=== PATIENT | female | born 1980 | race Caucasian/White ===

== ENCOUNTER 2023-03-19 21:09 | Emergency (ER) | payer OTHER, SELFPAY ==
--- NOTE | ~2023-03-19 | XR_ITS ---
EXAMINATION: XR chest 2V DATE: 03/20/2023 00:48 INDICATION: Chest pain. TECHNIQUE: Frontal and lateral views of the chest were obtained. COMPARISON: Chest single view 12/29/2012, CT abdomen and pelvis 03/19/2023 FINDINGS: There is no pneumonia, pleural effusion, or pneumothorax. The heart size is normal. There i s a left chest wall pacer with leads in the right atrium and right ventricle. Surgical clips in the r ight upper quadrant are likely from cholecystectomy. IMPRESSION: 1. No acute cardiopulmonary disease. Reviewed, dictated and finalized at location E.
--- NOTE | ~2023-03-19 | US_ITS ---
EXAMINATION: US pelvic complete w TV DATE: 03/19/2023 23:35 INDICATION: Pelvic pain Comparison:No prior studies for comparison. TECHNIQUE: Multiple transabdominal and endovaginal sonographic images of the pelvis performed. FINDINGS: The uterus measures 8.6 x 3.6 x 4.2 cm. The endometrial complex measures 13 mm. The right ovary measures 3.3 x 2 x 2.3 cm and the left ovary measures 3.9 x 1.7 x 2.5 cm. There are small follicles in each ovary. Normal doppler signal in both ovaries. There is no free fluid in the pelvis. There are no abnormal masses seen on either side. IMPRESSION: 1. Mild endometrial thickening. Reviewed, dictated and finalized at location A.
--- NOTE | ~2023-03-19 | CT_ITS ---
EXAMINATION: CT abdomen pelvis w con DATE: 03/19/2023 23:04 INDICATION: Abdominal pain TECHNIQUE: Computed tomography (CT) of the abdomen and pelvis was performed without intravenous contr ast. The dose-length product was 1029.29 mGy-cm. Automated exposure control and iterative reconstruction technique were employed. COMPARISON: None. FINDINGS: Calcified granuloma left lower lobe. Heart size normal. No significant pleural or pericardi al effusion. The liver, spleen, pancreas, adrenal glands are unremarkable. There are nonobstructing b ilateral renal stones. There are cholecystectomy clips. Small hiatal hernia. Small fat-containing umb ilical hernia. No abnormal pelvic masses or fluid collections. Nonobstructive bowel pattern. No free air or free fluid. No acute osseous abnormality. IMPRESSION: 1. Nonobstructing bilateral nephrolithiasis. 2: Small hiatal hernia. Fat-containing umbilical hernia. Reviewed, dictated and finalized at location A.
[2023-03-19 21:13] VITALS: BP 164/99; PULSE 94; RESP 18; TEMP 37; O2SAT 100
--- NOTE | 2023-03-19 21:16 | ECG_ITS ---
Measurements Intervals [place] Rate: 84 P: 38 MN: 145 QRS: 20 QRSD: 94 T: 30 QT: 367 QTc: 436 Interpretive Statements SINUS RHYTHM LOW QRS VOLTAGE IN PRECORDIAL LEADS BORDERLINE ECG NO PREVIOUS ECG AVAILABLE FOR COMPARISON Electronically Signed On 03-20-2023 7:49:15 CDT by Saravanan Hicks D.O.
[2023-03-19 21:56] LABS: Basophils Percent Auto 0.4 % (0.2-1.2); Eosinophils Absolute Auto 0.2 K/mm3 (0-0.3); Eosinophils Percent Auto 2.2 % (0-4.4); Hematocrit 41.6 % (37.0-47.0); Hemoglobin 13.3 g/dL (12.0-15.0); Immature Granulocyte Absolute 0.03 K/mm3 (0.00-0.031); Immature Granulocyte Percent A 0.4 % (0-0.5); Lymphocytes Absolute Auto 1.95 K/mm3 (0.9-3.2); Lymphocytes Percent Auto 23.8 % (18.3-44.2); Mean Corpuscular Hemoglobin 29.1 pg (26-34); Mean Platelet Volume 9.1 fl (7.4-10.4); Monocytes Absolute Auto 0.6 K/mm3 (0.1-0.6); Neutrophils Absolute Auto 5.4 K/mm3 (1.3-6.7); Neutrophils Percent Auto 66.2 % (45.5-73.1); Platelet Count Result 341 k/mm3 (150-375); Red Blood Count 4.57 M/mm3 (4.2-5.4); Red Cell Distribution Width 13.1 % (11.5-14.5); White Blood Count 8.2 K/mm3 (4.5-10.0)
[2023-03-19 22:07] LABS: Alanine Aminotransferase 21 U/L (6-35); Albumin Level 4.4 g/dL (3.5-5.1); Alkaline Phosphatase 63 U/L (38-126); Anion Gap 7 mmol/L (8-16); Aspartate Amino Transferase 31 U/L (14-36); Bilirubin,Total 0.5 mg/dL (0.2-1.3); Blood Urea Nitrogen 13 mg/dL (7-17); Calcium 9.7 mg/dL (8.4-10.2); Carbon Dioxide 29 mmol/L (22-30); Chloride 102 mmol/L (98-107); Estimated CRCL calculation 86 ml/min; Estimated Glomerular Filt Rate > 60; Glucose 102 mg/dL (65-110); Lipase 53 U/L (23-300); Potassium 3.8 mmol/L (3.4-5.0); Sodium 138 mmol/L (137-145)
--- NOTE | 2023-03-19 22:09 | ED.ABDPAIN ---
HPI - Abdominal Pain General Chief Complaint: Abdominal Pain Stated Complaint: RLQ pain Time Seen by Provider: 03/19/23 22:02 History of Present Illness HPI narrative: Patient is a 42-year-old female with history of chronic back pain, arrhythmia status post multiple ablations and pacemaker placement here with right-sided abdominal pain. Patient states that abdominal pain began about 4 days ago, was located in the right groin and is sharp in nature. She notes that the pain is now located suprapubically as well as in the right adnexa. She notes that the pain is worse with movement and has worsened her chronic back pain. She notes normal bowel movements and normal urination. She has taken her home Percocet for pain, has helped mildly. She denies any vaginal bleeding or discharge. She notes irregular periods and she does feel like she has a pressure sensation within her pelvis and she was sitting on the toilet trying to expel what feels like a large clot . No fever or chills. She does note some associated chest tightness which she attributes is due to the pain. Related Data Allergies Allergy/AdvReac Type Severity Reaction Status Date / Time morphine Allergy Intermediate Other Verified 03/19/23 21:10 adhesive Allergy Unknown Unknown Verified 03/19/23 21:10 latex Allergy Unknown Unknown Verified 03/19/23 21:10 adhesive tape AdvReac Mild RASH Verified 03/19/23 21:10 stitches vicryl - chromic AdvReac Mild Unknown Uncoded 03/19/23 21:10 Review of Systems Review of Systems: All systems reviewed & are unremarkable except as noted in HPI and below PMFSH Family History Family History (System 11/20/21 @ 15:14 by Renee Tolbert) Other Diabetes mellitus Family history of alcoholism Family history of arthritis Family history of malignant neoplasm Family history of mental disorder Hypertension Social History Social History (System 11/20/21 @ 15:14 by Renee Tolbert) Smoking status: Current every day smoker Alcohol intake: current Exam Narrative: GENERAL: Well-appearing, well-nourished, and in no acute distress. HEAD: Normocephalic, atraumatic. EYES: PERRLA and EOMI. ENT: Nares clear. Mucous membranes moist. NECK: Supple. CHEST: Clear to auscultation. No respiratory distress. HEART: Regular rate and rhythm. Normal peripheral pulses. ABDOMEN: Soft, tenderness in the suprapubic region and right adnexa. No rebound or guarding. No palpable hernia. EXTREMITIES: Normal range of motion. No edema. SKIN: Warm, dry, no rash. NEURO: No focal deficits. Alert and oriented x3. PSYCH: Normal mood and affect. Course Course Emergency Course: Chart review performed. Patient here with RLQ abdominal pain. No prior visits here in the ED. Triage vitals show HTN, otherwise normal. Triage workup reviewed. no leukocytosis, CMP normal, normal lipase, UA negative for UTI. Patient seen evaluated, does appear to be in pain. Reproducible tenderness in the right adnexa and suprapubic region. We will do CT abdomen pelvis and transvaginal ultrasound to evaluate for possible uterine /ovarian cause of pain as well as to evaluate for possible acute appendicitis. Pain medication ordered. Troponin added onto initial workup given associated chest pain however ACS is unlikely given presentation. Troponin <0.012, CT shows non obstructing bilateral nephrolithiasis as well as a small hiatal hernia and fat containing umbilical hernia. US shows mild endometrial thickening. Ovaries appear grossly normal. No fluid in pelvis. Patient reevaluated, much more comfortable appearing. Given negative workup, will do some muscle relaxers here to see if we can get better pain control. She notes she already has prescription for Percocet and Flexeril at home. Patient has continued chest pain. HEART score is 1. Will do repeat 3 hr troponin, EKG and perform a CXR. Repeat EKG stable. CXR reviewed by myself and appears negative. Repeat troponin negative.
[2023-03-19 22:14] LABS: Appearance Urine Cloudy (Clear); Bacteria Urine None Seen /hpf; Bilirubin Urine Negative (Negative); Blood Urine Negative (Negative); Color Urine Yellow (Yellow); Glucose Urine UA Negative (Negative); Ketones Urine Negative (Negative); Leukocyte Esterase Ur Negative LEU/UL (Negative); Nitrate Urine Negative (Negative); Non Pathogenic Casts 0-2; Protein Urine Negative (Negative); Specific Grav Ur 1.022 (1.001-1.035); Squamous Epithelial Cell Urine Occasional /hpf (Few); Urobilinogen Urine 0.2 mg/dL (<2.0); WBC Urine 0-5 /hpf; pH Urine 6.5 (5.0-9.0)
[2023-03-19 22:15] LABS: Add Urine Microscopic? YES
[2023-03-19 23:00] VITALS: BP 136/98; PULSE 90; RESP 13; O2SAT 97
[2023-03-19 23:16] LABS: Troponin I < 0.012 ng/mL (0.000-0.034)
[2023-03-19] MEDS: HYDROmorphone HCL INJ (*CRX) 1 MG/ML SYR IV PUSH (23:45)
[2023-03-20] VITALS: BP 140/85; PULSE 90; RESP 12; O2SAT 99
[2023-03-20] MEDS: diazePAM INJ (*CRX) 10 MG/2 ML SYRINGE 5 MG IM (00:17)
--- NOTE | 2023-03-20 00:22 | ECG_ITS ---
Measurements Intervals [place] Rate: 72 P: 65 [place]: 157 QRS: 55 QRSD: 88 T: 55 QT: 385 QTc: 423 Interpretive Statements SINUS RHYTHM WITH MARKED SINUS ARRHYTHMIA BASELINE ARTIFACT- I, II, III, AVR, AVL, AVF NORMAL ECG COMPARED TO ECG 03/19/2023 21:20:25 SINUS ARRHYTHMIA NOW PRESENT Electronically Signed On 03-20-2023 7:50:16 CDT by Saravanan Hicks D.O.
[2023-03-20 01:00] VITALS: BP 150/80; PULSE 101; RESP 14; O2SAT 100
[2023-03-20 01:02] LABS: Troponin I < 0.012 ng/mL (0.000-0.034)
[2023-03-20] MEDS: KETOROLAC 15 MG/ML VIAL (*BKC) IV PUSH (01:12)
[2023-03-20 01:20] VITALS: BP 139/95; PULSE 91; RESP 14; O2SAT 97
== END 2023-03-20 01:20 | disposition home or self-care (01) ==
PROVIDERS: Emergency Provider Student in an Organized Health Care Education/Training Program; PCP Internal Medicine
DX: R10.31 Right lower quadrant pain (principal); M54.50 Low back pain, unspecified; R07.9 Chest pain, unspecified; F17.200 Nicotine dependence, unspecified, uncomplicated; Z95.0 Presence of cardiac pacemaker; N20.0 Calculus of kidney; K42.9 Umbilical hernia without obstruction or gangrene; R94.31 Abnormal electrocardiogram [ECG] [EKG]; K44.9 Diaphragmatic hernia without obstruction or gangrene; R93.89 Abnormal findings on diagnostic imaging of other specified body structures
CPT/HCPCS: 36415; 71046; 74177; 76830; 76856; 80053; 81001; 81025; 83690; 84484; 85025; 93005; 96372; 96374; 99284; J1170; J1885; J3360; Q9967